=== PATIENT | male | born 1995 | race African-American/Black ===

== ENCOUNTER 2024-02-23 14:29 | Emergency (ER) | payer SELFPAY ==
[2024-02-23 14:35] VITALS: BP 157/87; PULSE 87; RESP 18; TEMP 36.8; O2SAT 100
--- NOTE | 2024-02-23 17:30 | ED.ABDPAIN ---
HPI - Abdominal Pain General Chief Complaint: Abdominal Pain Stated Complaint: abd pain Time Seen by Provider: 02/23/24 17:30 Focused HPI: Patient is a 28-year-old male who presents the ED with report of lower abdominal pain. Patient reports he had pizza yesterday in 1 of his classes and did not feel well after eating it. He attempted to drink some milk last night, but continued to not feel well. He then developed pain throughout his lower abdomen around 3-4 a.m. He felt the need to have a bowel movement, but states this did not improve the pain. Bowel movement was normal. Denies rectal bleeding or melena. He took some Pepto-Bismol, but again denied improvement. Has not take anything further for the pain. Reported having nausea with 2 episodes of emesis this morning. Was referred to the ED for rule out of appendicitis. Patient denies known fevers. GENERAL: Well-appearing, well-nourished, and in no acute distress. HEAD: Normocephalic, atraumatic. CHEST: Clear to auscultation. ?No respiratory distress. HEART: Regular rate and rhythm.? ABD: Diffuse tenderness throughout lower abdomen, no rebound. Normoactive BS NEURO: ?Alert and oriented x3. Patient screened in triage and initial orders placed.? ?Additional care and disposition to be based upon?diagnostic testing and treatment. Source: patient Mode of arrival: ambulatory Limitations: no limitations Related Data Allergies Allergy/AdvReac Type Severity Reaction Status Date / Time No Known Allergies Allergy Verified 02/23/24 14:37 Course Vital Signs Vital signs: Vital Signs Temperature 98.2 F 02/23/24 14:35 Pulse Rate 87 02/23/24 14:35 Respiratory Rate 18 02/23/24 14:35 Blood Pressure 157/87 H 02/23/24 14:35 Pulse Oximetry 100 02/23/24 14:35 Oxygen Delivery Room Air 02/23/24 14:35 Temperature 98.2 F 02/23/24 14:35 Pulse Rate 87 02/23/24 14:35 Respiratory Rate 18 02/23/24 14:35 Blood Pressure 157/87 H 02/23/24 14:35 Pulse Oximetry 100 02/23/24 14:35 Oxygen Delivery Room Air 02/23/24 14:35 MDM - Abdominal Pain MDM Narrative Medical decision making narrative: MSE by JONATHAN in triage. Patient left the facility after initial MSE in triage before receiving further care. Discharge Plan Discharge Clinical Impression: Abdominal pain Patient Disposition: [facility] After Seen by Prov Condition: Guarded Prognosis Instructions: Antibiotic Form Follow-up/Referrals: PHYSICIAN NOT ON STAFF,NONSTAFF [Non-Staff] -
== END 2024-02-23 14:35 | disposition left against medical advice (07) ==
PROVIDERS: Emergency Provider Physician Assistant
DX: R10.9 Unspecified abdominal pain (principal)
CPT/HCPCS: 99281